=== PATIENT | female | born 1995 | race Caucasian/White ===

== ENCOUNTER 2024-02-08 15:14 | Outpatient (OUT) | payer OTHER, SELFPAY ==
[2024-02-08 15:20] VITALS: BP 101/65; PULSE 86
--- NOTE | 2024-02-08 15:25 | US_ITS ---
[address] [address] Patient Name: BILLY QUINTERO MRN: [id number] date: 1995 Sex: F Assigned Patient Location: [facility] Current Patient Location: Accession/Order Number: [id number] Exam Date: 02/08/2024 15:50 Report Date: 02/09/2024 05:34 At the request of: DELFINA CHOW Procedure: US OB BPP w non-stress EXAMINATION: US OB BPP w non-stress HISTORY: postdates COMPARISON: No relevant comparison available. TECHNIQUE: Ultrasound biophysical profile was performed in the radiology department. BREATHING MOVEMENTS: 2.0 GROSS BODY MOVEMENTS: 2.0 TONE: 2.0 QUALITATIVE AMNIOTIC FLUID VOLUME: 2.0 PRESENTATION: CEPHALIC HEART RATE: 145.2 bpm bpm. AMNIOTIC FLUID VOLUME: 15.4 cm GESTATIONAL AGE: 40 weeks 2 days CONCLUSION: Total biophysical profile score 8.0. Electronically authenticated by: STEFANY HERNANDEZ Date: 02/09/2024 05:34
== END 2024-02-08 16:25 | disposition home or self-care (01) ==
LOC: FBC 15:17 → FBCO 02-11 08:52
PROVIDERS: Visit Provider Midwife
DX: O48.0 Post-term pregnancy (principal); Z3A.40 40 weeks gestation of pregnancy
CPT/HCPCS: 59025; 76818

== ENCOUNTER 2024-02-13 10:07 | Inpatient (IN) | payer OTHER, SELFPAY ==
[2024-02-13] VITALS (51 sets, daily range): BP systolic 83–126; BP diastolic 50–80; PULSE 63–105; TEMP 36.2–36.3
[2024-02-13] MEDS: LACTATED RINGER'S SOLUTION 1,000 ML 125 ML IV ×3 (11:32→19:37)
[2024-02-13] MEDS: OXYTOCIN/0.9 % SODIUM CHLORIDE 10 UNITS/500 ML PLAST..BAG 6 UNIT IV (11:33)
[2024-02-13 11:36] LABS: Hematocrit 36.2 % (36.0-48.0); Hemoglobin 12.1 g/dL (12.0-16.0); Mean Corpuscular HGB Conc 33.4 g/dL (29.9-35.2); Mean Corpuscular Hemoglobin 32.1 pg (26.7-34.0); Mean Platelet Volume 10.2 fL (9.5-13.5); Platelet Count 232 10^3/uL (150-450); Red Blood Count 3.77 10^6/uL (4.20-5.40); Red Cell Distribution Width 12.8 % (11.0-15.0); White Blood Count 9.7 10^3/uL (4.0-11.0)
--- NOTE | 2024-02-13 13:22 | PM.EN ---
Event Note Event Note: to room to assessment patient. SVE 3/-2 bag of fluid felt. Difficulty rupturing with amnihook, repositioned patient and sterile finger cot used and AROM performed without difficulty. Moderate amount of blood tinged, clear, odorless fluid noted. heart tones stable before, during and after ROM. Patient tolerated procedure well.
[2024-02-13] MEDS: ROPIVACAINE HCL/PF 400 MG/200 ML PREMIX 6 MG EPIDURAL (13:42)
--- NOTE | 2024-02-13 13:50 | PM.OBHP ---
OB - H&P: HPI History of Present Illness Chief complaint: INDUCTION : 2 Para: 1 Gestational age based on last menstrual period: 41.0 Indications for induction: other (post dates ) History of Present Dating criteria: LMP confirmed by 1st trimester US care: good care Ultrasounds: normal 1st trimester US and normal mid trimester US Medical complications OB: none Labs Blood type: A (+) positive Rubella: immune RPR/VDLR: nonreactive GBS status: negative HBsAG: negative Review of Systems ROS Status of ROS: 10 or more systems reviewed and unremarkable except as noted in history and below PFSH PFSH Social History Highest level of school completed/degree received: Bachelor's degree Meds Home Medications and Allergies Allergies Allergy/AdvReac Type Severity Reaction Status Date / Time No Known Drug Allergies Allergy Verified 02/08/24 15:24 Exam Constitutional Vital Signs, click to edit/add: Last Vital Signs Temp 97.3 F L 02/13/24 10:34 Pulse 90 02/13/24 13:41 Resp 12 02/13/24 10:34 BP 124/74 02/13/24 13:44 O2 Del Method Room Air 02/13/24 10:34 Common normals: no apparent distress, average body habitus, oriented x3, no limitations, healthy appearing, alert and well nourished General appearance: cooperative Orientation/consciousness: Yes awake, Yes oriented to person, Yes oriented to place and Yes oriented to time HENMT Common normals: normocephalic Eye Common normals: EOMs intact bilaterally Neck & C-Spine Common normals: full ROM Lymph Lymphatic: no lymphadenopathy noted Chest Common normals: inspection of chest normal Respiratory Common normals: normal respiratory effort, no retractions, no use of accessory muscles, clear to auscultation bilaterally and percussion normal Cardio Common normals: regular rate and regular rhythm Rate: regular rate Rhythm: regular rhythm GI Common normals: Normal to inspection, nondistended, normoactive bowel sounds present Auscultation: normoactive bowel sounds Palpation: soft Common normals: no CVA tenderness Back & Pelvis Common normals: no CVA tenderness Extremity Common normals: normal to inspection Neuro Common normals: oriented x3 Sensorium/orientation: awake, alert, oriented to person, oriented to place and oriented to time Psych Common normals: mental status grossly normal, thought process normal, cooperative, affect normal, speech normal, activity/motor behavior normal, denies hallucinations, denies homicidal ideation and denies suicidal ideation Results Labs Labs: Short CBC 02/13/24 Range/Units 11:14 WBC 9.7 (4.0-11.0) 10^3/uL Hgb 12.1 (12.0-16.0) g/dL Hct 36.2 (36.0-48.0) % Plt Count 232 (150-450) 10^3/uL OB - A/P Assessment and Plan (1) Term : (2) Post-dates :
[2024-02-13 16:28] LABS: Amphetamine Screen Urine NEGATIVE (NEGATIVE); Barbiturates Screen Urine NEGATIVE (NEGATIVE); Benzodiazepines Screen Urine NEGATIVE (NEGATIVE); Buprenorphine Screen Urine NEGATIVE (NEGATIVE); Cannabinoid Screen Urine NEGATIVE (NEGATIVE); Cocaine Screen Urine NEGATIVE (NEGATIVE); Methadone Screen Urine NEGATIVE (NEGATIVE); Methamphetamines Screen Urine NEGATIVE (NEGATIVE); Opiate Screen Urine NEGATIVE (NEGATIVE); Oxycodone Screen Urine NEGATIVE (NEGATIVE); Phencyclidine Screen Urine NEGATIVE (NEGATIVE); Tricyclic Antidepressant Urine NEGATIVE (NEGATIVE)
--- NOTE | 2024-02-13 20:47 | PM.OBPRCVD ---
Procedure Intrapartal events: None Induction method: per pitocin protocol Delivery augmentation: rupture of membranes Delivery monitor: external FHT and external uterine Route of delivery: Episiotomy Description: none L&D Laceration Description: perineal - 1st degree and labial (bilateral labial ) Delivery repair: Vicryl Estimated blood loss (mL): 100 Anesthesia type: Epidural Infant Delivery date: 02/13/24 Gender: female presentation: vertex Placental delivery description: Spontaneous cord description: 3 Vessels heart rate - 1 minute: 100 bpm or Greater respiratory effort - 1 minute: Spontaneous/Strong Cry muscle tone - 1 minute: Active Movement reflex response - 1 minute: Prompt Response color - 1 minute: Bluish Hands or Feet total score - 1 minute: 9 heart rate - 5 minute: 100 bpm or Greater respiratory effort - 5 minute: Spontaneous/Strong Cry muscle tone - 5 minute: Active Movement reflex response - 5 minute: Prompt Response color - 5 minute: Bluish Hands or Feet total score - 5 minute: 9
[2024-02-13] MEDS: OXYTOCIN/0.9 % SODIUM CHLORIDE 20 UNITS/1,000 ML PLAST..BAG 125 UNIT IV (22:08)
[2024-02-14] MEDS: IBUPROFEN 600 MG TABLET PO ×4 (02:22→20:20)
[2024-02-14] MEDS: BENZOCAINE/MENTHOL 85 GRAM SPRAY BOTTLE 1 APPLIC TOPICAL (02:22)
[2024-02-14] MEDS: GLYCERIN/WITCH HAZEL PADS 1 PAD TOPICAL (02:23)
[2024-02-14 04:05] VITALS: TEMP 36.6
[2024-02-14] MEDS: ACETAMINOPHEN 325 MG TABLET 650 MG PO ×4 (04:06→23:12)
[2024-02-14 04:07] VITALS: BP 101/60; PULSE 81
[2024-02-14 06:12] LABS: Basophils Percent Auto 0.2 % (0.2-2.0); Eosinophils Absolute Auto 0.1 10^3/uL (0.0-0.7); Eosinophils Percent Auto 0.9 % (0.9-7.0); Hematocrit 37.5 % (36.0-48.0); Hemoglobin 12.4 g/dL (12.0-16.0); Immature Granulocytes Abs Auto 0.05 10^3/uL (0.00-0.03); Immature Granulocytes Pct Auto 0.4 % (0.0-0.5); Lymphocytes Absolute Auto 3.4 10^3/uL (1.2-3.8); Lymphocytes Percent Auto 26.5 % (20.5-60.0); Mean Corpuscular HGB Conc 33.1 g/dL (29.9-35.2); Mean Corpuscular Hemoglobin 31.6 pg (26.7-34.0); Mean Corpuscular Volume 95.7 fL (81.0-99.0); Mean Platelet Volume 9.9 fL (9.5-13.5); Monocytes Absolute Auto 0.6 10^3/uL (0.3-0.8); Monocytes Percent Auto 4.6 % (1.7-12.0); Neutrophils Absolute Auto 8.7 10^3/uL (1.4-6.5); Neutrophils Percent Auto 67.4 % (43.0-75.0); Platelet Count 198 10^3/uL (150-450); Red Blood Count 3.92 10^6/uL (4.20-5.40); Red Cell Distribution Width 12.8 % (11.0-15.0); White Blood Count 12.9 10^3/uL (4.0-11.0)
--- NOTE | 2024-02-14 06:56 | PM.OBPN ---
OB - PN: Subj Subjective Patient comments: no complaints and pain well controlled [place] status: doing well Exam Constitutional Vital Signs, click to edit/add: Last Vital Signs Temp 97.9 F 02/14/24 04:05 Pulse 81 02/14/24 04:07 Resp 16 02/14/24 04:05 BP 101/60 02/14/24 04:07 O2 Del Method Room Air 02/13/24 22:30 Documenting provider has reviewed patient's vital signs: yes Common normals: no apparent distress Respiratory Common normals: normal respiratory effort and clear to auscultation bilaterally Cardio Common normals: regular rate and regular rhythm GI Common normals: Normal to inspection, nondistended, normoactive bowel sounds present Extremity Common normals: no clubbing, cyanosis or edema and no calf tenderness Results Labs Labs: Short CBC 02/13/24 02/14/24 Range/Units 11:14 06:01 WBC 9.7 12.9 H (4.0-11.0) 10^3/uL Hgb 12.1 12.4 (12.0-16.0) g/dL Hct 36.2 37.5 (36.0-48.0) % Plt Count 232 198 (150-450) 10^3/uL Urinary Catheter Management Urinary Catheter Management Urethral: Cath placed during this visit: yes, but has since been removed by the nurse Insertion date: 02/13/24 Insertion time: 14:30 Removal date: 02/13/24 Removal time: 19:57 OB - PN: A/P Assessment and Plan (1) Term : (2) Post-dates : Plan - Vaginal Delivery day: 1 Plan: routine care Time Spent with Patient Time: Total time spent is greater than 50% in coordination of care (as documented) at patient's floor/unit and/or counseling patient: Total time spent with greater than 50% in coordination of care (as documented) at patient's floor/unit and/or counseling patient: less than 15 minutes
[2024-02-14 08:34] VITALS: BP 116/76; PULSE 81; TEMP 36.1
[2024-02-14] MEDS: DOCUSATE SODIUM 100 MG CAPSULE PO ×2 (08:35→20:13)
[2024-02-14 16:38] VITALS: BP 99/52; PULSE 74; TEMP 36.2
--- NOTE | 2024-02-14 19:43 | W.PC.ACHO ---
Registration Status: ADM IN Primary Language: New Zealander Preferred Language: New Zealander Report received from Robert Pacheco RN at 1910. Active Medications Generic Name Dose Route Start Last Admin Trade Name Verna PRN Reason Stop Dose Admin Acetaminophen 650 mg 02/13/24 22:19 02/14/24 16:39 Acetaminophen 325 Mg Tablet PO 650 mg Q6H PRN Administration Mild Pain Al Hydroxide/Mg Hydroxide 2,400 mg 02/13/24 22:19 Magnesium Hydroxide 2,400 Mg/10 Ml Oral.Susp PO Q6H PRN Dyspepsia Benzocaine/Menthol 1 applic 02/13/24 22:19 02/14/24 02:22 Benzocaine/Menthol 85 Gram [place] Bottle TOPICAL 1 applic Q2H PRN Administration Pain Calcium Carbonate 500 mg 02/13/24 10:29 Calcium Carbonate 500 Mg (200mg Elemental) Tab Chew PO TID PRN Heartburn Carboprost Tromethamine 250 mcg 02/13/24 10:22 Carboprost Tromethamine 250 Mcg/Ml 1 Ml Vial IM 02/14/24 22:00 Q15M PRN Bleeding Docusate Sodium 100 mg 02/14/24 09:00 02/14/24 08:35 Docusate Sodium 100 Mg Capsule PO 100 mg BID ENRIQUE Administration Lactated Ringer's 1,000 mls @ 125 mls/hr 02/13/24 10:30 02/13/24 19:37 Lactated Ringers IV 125 mls/hr .Q8H ENRIQUE Administration Ibuprofen 600 mg 02/13/24 22:19 02/14/24 14:19 Ibuprofen 600 Mg Tablet PO 600 mg Q6H PRN Administration Moderate Pain Methylergonovine Maleate 0.2 mg 02/13/24 10:22 Methylergonovine Maleate 0.2 Mg/Ml Ampule IM 02/14/24 22:00 ONCE PRN Uterine Contractility/Contract Methylergonovine Maleate 0.2 mg 02/13/24 10:22 Methylergonovine Maleate 0.2 Mg Tablet PO 02/14/24 22:00 Q4H PRN Uterine Contractility/Contract Misoprostol 600 mcg 02/13/24 10:22 Misoprostol 100 Mcg Tablet PO 02/14/24 22:00 ONCE PRN Uterine Bleeding Misoprostol 800 mcg 02/13/24 10:22 Misoprostol 100 Mcg Tablet SL 02/14/24 22:00 ONCE PRN Uterine Bleeding Misoprostol 1,000 mcg 02/13/24 10:22 Misoprostol 100 Mcg Tablet WI 02/14/24 22:00 ONCE PRN Uterine Bleeding Ondansetron HCl 4 mg 02/13/24 10:27 Ondansetron Pf 4 Mg/2 Ml Vial IV Q6H PRN Nausea And Vomiting Ondansetron HCl 4 mg 02/13/24 10:27 Ondansetron 4 Mg Rapdis Tablet SL Q6H PRN Nausea And Vomiting Simethicone 80 mg 02/13/24 22:19 Simethicone 80 Mg Tab.Chew PO QID PRN Abdominal Distention Temazepam 15 mg 02/13/24 22:19 Temazepam 15 Mg Capsule PO QHS PRN Sleep Witch Susi/Glycerin 1 pad 02/13/24 22:19 02/14/24 02:23 Glycerin/Witch Susi Pads TOPICAL 1 pad Q2H PRN Administration Pain Diet Category Date Time Status Regular Consistency Diet Diet 02/13/24 22:20 Active Respiratory Oxygen Delivery Method Room Air Renal Bladder Pattern Dribbling Catheter Urinary Catheter Date of 02/13/24 Insertion [Urethral] Urinary Catheter Time of 14:30 Insertion [Urethral] Date Urinary Catheter Removed 02/13/24 [Urethral] Date Urinary Catheter Removed 02/13/24 [Urethral] Time Urinary Catheter 19:57 Discontinued [Urethral] Time Urinary Catheter 19:57 Discontinued [Urethral]
[2024-02-14 20:15] VITALS: BP 103/65; PULSE 79
[2024-02-15 04:00] VITALS: TEMP 36.4
[2024-02-15] MEDS: IBUPROFEN 600 MG TABLET PO (04:04)
[2024-02-15 04:05] VITALS: BP 111/65; PULSE 69
--- NOTE | 2024-02-15 07:46 | W.PC.ACHO ---
Registration Status: ADM IN Primary Language: Lao Preferred Language: Lao Report given to Tri TREJO. Active Medications Generic Name Dose Route Start Last Admin Trade Name Freq PRN Reason Stop Dose Admin Acetaminophen 650 mg 02/13/24 22:19 02/14/24 23:12 Acetaminophen 325 Mg Tablet PO 650 mg Q6H PRN Administration Mild Pain Al Hydroxide/Mg Hydroxide 2,400 mg 02/13/24 22:19 Magnesium Hydroxide 2,400 Mg/10 Ml Oral.Susp PO Q6H PRN Dyspepsia Benzocaine/Menthol 1 applic 02/13/24 22:19 02/14/24 02:22 Benzocaine/Menthol 85 Gram [place] Bottle TOPICAL 1 applic Q2H PRN Administration Pain Calcium Carbonate 500 mg 02/13/24 10:29 Calcium Carbonate 500 Mg (200mg Elemental) Tab Chew PO TID PRN Heartburn Docusate Sodium 100 mg 02/14/24 09:00 02/14/24 20:13 Docusate Sodium 100 Mg Capsule PO 100 mg BID ENRIQUE Administration Lactated Ringer's 1,000 mls @ 125 mls/hr 02/13/24 10:30 02/13/24 19:37 Lactated Ringers IV 125 mls/hr .Q8H ENRIQUE Administration Ibuprofen 600 mg 02/13/24 22:19 02/15/24 04:04 Ibuprofen 600 Mg Tablet PO 600 mg Q6H PRN Administration Moderate Pain Ondansetron HCl 4 mg 02/13/24 10:27 Ondansetron Pf 4 Mg/2 Ml Vial IV Q6H PRN Nausea And Vomiting Ondansetron HCl 4 mg 02/13/24 10:27 Ondansetron 4 Mg Rapdis Tablet SL Q6H PRN Nausea And Vomiting Simethicone 80 mg 02/13/24 22:19 Simethicone 80 Mg Tab.Chew PO QID PRN Abdominal Distention Temazepam 15 mg 02/13/24 22:19 Temazepam 15 Mg Capsule PO QHS PRN Sleep Witch Susi/Glycerin 1 pad 02/13/24 22:19 02/14/24 02:23 Glycerin/Witch Susi Pads TOPICAL 1 pad Q2H PRN Administration Pain Respiratory Oxygen Delivery Method Room Air Oxygen Delivery Method Room Air Oxygen Delivery Method Room Air Oxygen Delivery Method Room Air Renal Bladder Pattern Continent Bladder Pattern Continent
[2024-02-15] MEDS: ACETAMINOPHEN 325 MG TABLET 650 MG PO (08:39)
[2024-02-15] MEDS: DOCUSATE SODIUM 100 MG CAPSULE PO (08:39)
[2024-02-15 08:40] VITALS: BP 110/70; PULSE 71
--- NOTE | 2024-02-15 12:14 | P.DS_ITS ---
DS: Providers Provider Date of admission: 02/13/24 10:07 Primary care physician: Non-Staff Physician, Admitting clinician: DELFINA CHOW Attending physician on discharge: Abbey Greene DS: Diagnosis Discharge Diagnosis (1) Post-dates : Assessment and plan: S/P UNCOMPLICATED VAGINAL DELIVERY, READY FOR DISCHARGE Plan EXAM WNL, WILL DISCHARGE HOME OB - DS: Summary Hospital Course Hospital Course: UNCOMPLICATED Time spent discussing smoking cessation with patient: 3 to 10 minutes Peripartum Data - Vaginal Delivery Laceration description: periurethral - 1st degree Complications complications: none Infant Delivery method: spontaneous vaginal delivery Gender: female Discharge plan: home Status at Discharge Cognitive/behavioral status at discharge: WNL Functional status at discharge: independent ambulation Time Spent with Patient Time attestation: Total time spent providing and/or coordinating discharge services: Time spent: less than 30 minutes Exam Narrative Exam Narrative: VOICING NO COMPLAINTS Constitutional Vital Signs, click to edit/add: Last Vital Signs Temp 97.5 F L 02/15/24 04:00 Pulse 71 02/15/24 08:40 Resp 18 02/15/24 04:00 BP 110/70 02/15/24 08:40 O2 Del Method Room Air 02/15/24 08:40 Documenting provider has reviewed patient's vital signs: yes Common normals: no apparent distress HENMT Common normals: normocephalic and head/scalp atraumatic Eye Pupil: PERRL and accommodation reflex normal Neck & C-Spine Common normals: full ROM Respiratory Common normals: normal respiratory effort Cardio Common normals: regular rate and regular rhythm GI Common normals: Normal to inspection, nondistended, normoactive bowel sounds present and soft to palpation Common normals: no CVA tenderness Back & Pelvis Common normals: no thoracic nor lumbar tenderness Extremity Common normals: normal to inspection, full ROM and no calf tenderness Neuro Common normals: CN's II-XII intact bilaterally, moves all extremities, no focal motor deficits and no sensory deficits noted Psych Common normals: mental status grossly normal, thought process normal, cooperative, affect normal and speech normal Discharge Plan Discharge Disposition: Home, Self-Care Condition: Good Assessment: CONDITION GOOD REQUESTING DISCHARGER Health Concerns: NA Plan of Treatment: ROUTINE CARE Activity: increase activity as tolerated Activity Detail: WALKING ONLY EXERCISE FOR 4 WEEKS, NO SWIMMING FOR 4 WEEKS Diet: regular diet Print Language: Hungarian Patient Instructions: Vaginal Delivery (DC) Activity Restrictions/Additional Instructions: NO SEX SIX WEEKS Forms: Portal Instructions Follow Up Appointments: TO MAKE APPOINTMENT FOR SIX WEEKS Discharge location: HOME
== END 2024-02-15 13:00 | disposition home or self-care (01) | DRG 807 ==
PROVIDERS: Admitting Provider Midwife; Visit Provider Midwife
DX: O48.0 Post-term pregnancy (principal); Z37.0 Single live birth; Z3A.41 41 weeks gestation of pregnancy; O70.0 First degree perineal laceration during delivery
CPT/HCPCS: 36415; 51702; 59050; 59410; 80307; 85025; 85027; 86850; 86900; 86901; 96365; 96366; 96376; J2795